=== PATIENT | male | born 1990 | race Caucasian/White ===

== ENCOUNTER 2021-12-24 19:47 | Emergency (ER) | payer BC, OTHER ==
[2021-12-24 20:44] LABS: SARS-CoV-2 NAA Rapid Test Not Detected (NotDetected)
[2021-12-24] MEDS ORDERED: Fentanyl 100 MCG/2 ML VIAL ONE (21:10)
[2021-12-24] MEDS ORDERED: PROPOFOL 20 ML ONE (21:10)
[2021-12-24] MEDS ORDERED: Succinylcholine 200 MG/10 ml SYRINGE FS ONE (21:12)
[2021-12-24] MEDS ORDERED: Lidocaine 1% PF 5 ML VIAL ONE (21:12)
[2021-12-24] MEDS ORDERED: Ondansetron PF 4 MG/2 ML Vial ONE (21:13)
[2021-12-24] MEDS ORDERED: Dexamethasone 4 mg/ml Vial ONE (21:13)
== END 2021-12-24 21:10 | disposition home or self-care (01) ==
LOC: CSHERS 19:47
PROC: 0DB28ZX Excision of Middle Esophagus, Via Natural or Artificial Opening Endoscopic, Diagnostic (ICD-10-PCS; principal; 2021-12-24)
PROC: 0DC38ZZ Extirpation of Matter from Lower Esophagus, Via Natural or Artificial Opening Endoscopic (ICD-10-PCS; 2021-12-24)
DX: T18.128A Food in esophagus causing other injury, initial encounter (principal); K20.0 Eosinophilic esophagitis; J45.909 Unspecified asthma, uncomplicated; R13.10 Dysphagia, unspecified; Z20.822 Contact with and (suspected) exposure to COVID-19
CPT/HCPCS: 88305; 99284; J1100; J2405; J2704; J3010; U0002